=== PATIENT | female | born 1995 | race Caucasian/White ===

== ENCOUNTER → 2020-11-11 | Outpatient (CLI) | payer OTHER ==
[~2020-11-11] MED LIST: CHOL10003 PO; DOXY50CA4 PO; IBUP-1223 PO; OXYC1TAB14 PO; SENN8.6C2 PO
[2020-11-11 10:52] LABS: ALANINE AMINOTRANSFERASE 94 U/L (12-78); ALBUMIN 3.6 g/dL (3.4-5.0); ANION GAP 5 mmol/L (5-15); CALCIUM 8.9 mg/dL (8.5-10.1); CHLORIDE 107 mmol/L (98-107)
[2020-11-11 10:55] LABS: ALKALINE PHOSPHATASE 59 U/L (45-117); BILIRUBIN,TOTAL 1.2 mg/dL (0.2-1.0); CHOL/HDL RATIO 4.8; CHOLESTEROL, TOTAL 197 mg/dL (140-239); HDL CHOL % 21 % (28-40); HDL CHOLESTEROL (DIRECT) 41 mg/dL (40-60); LDL CHOLESTEROL,CALCULATED 116 mg/dL (54-169); LDL/HDL RATIO 2.8 (0.5-3.0); TOTAL PROTEIN 7.7 g/dL (6.4-8.2); TRIGLYCERIDES 202 mg/dL (50-200); VLDL CHOLESTEROL 40 mg/dL (0-25)
== END | disposition home or self-care (01) ==
LOC: LAB 10:02
PROVIDERS: ATTEND Family Medicine
DX: Z13.6 Encounter for screening for cardiovascular disorders (principal); L73.2 Hidradenitis suppurativa; Z83.3 Family history of diabetes mellitus
CPT/HCPCS: 80053; 80061; 83036; 83525

== ENCOUNTER → 2020-11-11 | Outpatient (CLI) | payer OTHER ==
[2020-11-11 10:23] LABS: BASOPHILS % (AUTO) 1 % (0-1); EOSINOPHILS % (AUTO) 1 % (1-7); LYMPHOCYTES % (AUTO) 33 % (22-44); MEAN CORPUSCULAR HEMOGLOBIN 30.4 pg (27.0-34.8); MEAN CORPUSCULAR HGB CONC 34.2 g/dL (32.4-35.8); MEAN PLATELET VOLUME 8.8 fL (7.4-10.4); MONOCYTES % (AUTO) 10 % (2-9); NEUTROPHILS % (AUTO) 55 % (42-75); PLATELET COUNT 208 x10^3/uL (130-400); RED BLOOD COUNT 4.58 x10^6/uL (3.82-5.3); RED CELL DISTRIBUTION WIDTH 13.1 % (9.6-15.2)
[2020-11-11 10:37] LABS: MD NO
== END | disposition home or self-care (01) ==
LOC: STAR 09:07
PROVIDERS: ATTEND Obstetrics & Gynecology
DX: Z01.812 Encounter for preprocedural laboratory examination (principal); R10.2 Pelvic and perineal pain; N93.9 Abnormal uterine and vaginal bleeding, unspecified; Z20.822 Contact with and (suspected) exposure to COVID-19
CPT/HCPCS: 36415; 84703; 85025; U0003

== ENCOUNTER 2020-11-17 10:47 | Day surgery (SDC) | payer OTHER ==
[~2020-11-17] VITALS: Ht 160 cm; Wt 90.6 kg
[2020-11-17 11:08] VITALS: BP 106/75
[2020-11-17] MEDS ORDERED: LIDOCAINE-MPF 1%, 2ML INFIL ONE (11:30)
[2020-11-17] MEDS ORDERED: CHLORHEXIDINE 15 ML UDC MM ONE (11:30)
[2020-11-17] MEDS ORDERED: LACTATED RINGERS 1,000 ML IV SCH (11:30)
[2020-11-17 11:37] LABS: HCG UR SG 1.018 (1.003-1.030)
[2020-11-17] MEDS ORDERED: BUPIVACAINE/PF 0.25% ONE (12:23)
[2020-11-17] MEDS ORDERED: EPINEPHRINE 1 MG/ML, 1ML ONE (12:24)
[2020-11-17] MEDS ORDERED: SILVER NITRATE STICK TP ONE (12:24)
[2020-11-17] MEDS ORDERED: ROCURONIUM 10 MG/ML,10ML ONE (12:59)
[2020-11-17] MEDS ORDERED: CEFAZOLIN 1,000 MG ONE (12:59)
[2020-11-17] MEDS ORDERED: DEXAMETHASONE 4 MG/ML, 1ML ONE (12:59)
[2020-11-17] MEDS ORDERED: ONDANSETRON 2MG/ML, 2ML ONE (12:59)
[2020-11-17] MEDS ORDERED: MIDAZOLAM 1 MG/ML, 2ML ONE (12:59)
[2020-11-17] MEDS ORDERED: PROPOFOL 10 MG/ML, 20ML ONE (12:59)
[2020-11-17] MEDS ORDERED: KETOROLAC 30 MG/1 ML ONE (12:59)
[2020-11-17] MEDS ORDERED: SUCCINYLCHOLINE 20 MG/ML, 10ML ONE (12:59)
[2020-11-17] MEDS ORDERED: FENTANYL PF 250 MCG/5ML ONE (12:59)
[2020-11-17] MEDS ORDERED: DIAZEPAM 5 MG/ML, 2ML IV PRN ×2 (13:30)
[2020-11-17] MEDS ORDERED: LABETALOL 5MG/ML, 20ML IV PRN (13:30)
[2020-11-17] MEDS ORDERED: METOCLOPRAMIDE 5 MG/ML, 2ML IV PRN (13:30)
[2020-11-17] MEDS ORDERED: ALBUTEROL SULFATE 2.5 MG/3 ML NPPB PRN (13:30)
[2020-11-17] MEDS ORDERED: HYDROmorphone 1 MG/ML, 1ML INJ IV PRN (13:30)
[2020-11-17] MEDS ORDERED: ONDANSETRON 2MG/ML, 2ML IVPush PRN (13:30)
[2020-11-17] MEDS ORDERED: KETOROLAC 30 MG/1 ML IV PRN (13:30)
[2020-11-17] MEDS ORDERED: OXYcodone 5 MG/5 ML ORAL.SOL UDC PO PRN (13:30)
[2020-11-17] MEDS ORDERED: PROMETHAZINE 25 MG/ML, 1ML IV PRN (13:30)
[2020-11-17] MEDS ORDERED: hydrALAzine 20 MG/ML, 1ML IV PRN (13:30)
[2020-11-17] MEDS ORDERED: MEPERIDINE/PF 25MG/0.5ML IVPush PRN (13:30)
[2020-11-17] MEDS ORDERED: FENTANYL PF 100 MCG/2ML ONE (14:48)
[2020-11-17] MEDS ORDERED: OXYcodone 5 MG/5 ML ORAL.SOL UDC ONE (14:48)
[2020-11-17] MEDS: FENTANYL PF 100 MCG/2ML IV PRN ×2 (14:51→14:56)
== END 2020-11-17 18:10 | disposition home or self-care (01) ==
LOC: OUT 10:47
PROVIDERS: ATTEND Obstetrics & Gynecology
DX: N93.9 Abnormal uterine and vaginal bleeding, unspecified (principal); N94.6 Dysmenorrhea, unspecified; N83.8 Other noninflammatory disorders of ovary, fallopian tube and broad ligament; Q51.3 Bicornate uterus; Z98.890 Other specified postprocedural states
CPT/HCPCS: 58558; 58662; 81025; 88305; J0171; J0330; J0690; J1100; J1885; J2250; J2405; J2704; J3010; J7120